=== PATIENT | male | born 1990 | race Caucasian/White ===

== ENCOUNTER → 2018-02-10 08:49 | Outpatient (CLI) | payer BC, SELFPAY ==
--- NOTE | 2018-02-10 08:58 | FL_ITS ---
FL upper GI small bowel HISTORY: Joking sensation, reflux, narrowing of the esophagus ITS.REASON: DYSPHAGIA ORDERING PHYSICIAN: Gt Woodruff MD PATIENT AGE: 27 years Comparison: None FINDINGS: The esophagus, stomach, and duodenum have an unremarkable appearance. There is a small sliding hiatal hernia with nonconstricting Schatzki's ring. No ulcer or mass evident. No mucosal abnormalities apparent. There is normal peristalsis. The duodenal C-loop is nondisplaced. The small bowel has an unremarkable appearance. No mass, obstructing lesion, or mucosal abnormality evident FLUOROSCOPY TIME : 2 minutes and 18 seconds. IMPRESSION: 1. Small sliding hiatal hernia with nonconstricting Schatzki's ring 2. Otherwise negative upper GI and small bowel follow-through
== END ==
PROVIDERS: PCP Family Medicine; Visit Provider Family Medicine
DX: R13.10 Dysphagia, unspecified (principal)
CPT/HCPCS: 74245

== ENCOUNTER → 2018-03-28 08:38 | Outpatient (POV) | payer BC, SELFPAY | PROVIDERS: Visit Provider Nurse Practitioner Acute Care | DX: Z00.00 Encounter for general adult medical examination without abnormal findings (principal) ==

== ENCOUNTER 2018-08-26 06:51 | Day surgery (SDC) | payer OTHER, SELFPAY ==
[2018-08-23 12:33] VITALS: BMI 33.2
[2018-08-26] VITALS (7 sets, daily range): BP systolic 101–120; BP diastolic 62–71; PULSE 57–73; RESP 16–18; TEMP 36.2–36.4; O2SAT 93–98
--- NOTE | 2018-08-26 07:19 | HMH.ANESCL ---
[facility] Anesthesia Checklist - Patient Identification Patient Identification: Arm Band, Verbal (Name & ) - Structural Data Admitted From: Home Planned Operative Procedure/s: EGD Consent for Planned Operative Procedure(s) Verified: Yes Verified Documents: Surgical Consent, History and Physical - NPO Status Verified Time NPO: 19:00 - Additional verifications Anesthesia Reactions: No - Airway Assessment C-Spine Mobility Assessed: Yes TMJ Mobility Assessed: Yes Dentition: Good Dentition - Neurological Assessment Level of Consciousness: Awake, Alert, Appropriate, Follows Commands Hx Seizures: No Numbness or tingling in extremities: No - Anesthesia Plan Anesthesia Risk discussed: Yes Anesthesia Plan: Verified ASA Class: II Anesthesia Type: MAC [facility] History I have reviewed the patient's past medical history: Yes Medical History: Reports:: Anxiety Denies:: Diabetes Mellitus Type 1, Diabetes Mellitus Type 2, Lung Disease *Have you ever received a pneumonia vaccine?: Yes (Unknown) *Have you received a flu vaccine this season?: Yes Comment:: obesity Other Surgeries: Yes: Hernia Repair Amputation: No Fractures: No - *Social History Smoking Status: Never smoker Alcohol Intake: current Alcohol Intake Frequency:: a few times a month *Occupational Status:: other (unknown) *Travel in the last 8 weeks: Inside the [facility] Family Hx:: No significant family history
--- NOTE | 2018-08-26 07:22 | P.PN_ITS ---
[facility] Anesthesia Checklist - Patient Identification Patient Identification: Arm Band, Verbal (Name & ) - Structural Data Admitted From: Home Planned Operative Procedure/s: EGD Consent for Planned Operative Procedure(s) Verified: Yes Verified Documents: Surgical Consent, History and Physical - NPO Status Verified Time NPO: 19:00 - Additional verifications Anesthesia Reactions: No - Airway Assessment C-Spine Mobility Assessed: Yes TMJ Mobility Assessed: Yes Dentition: Good Dentition - Neurological Assessment Level of Consciousness: Awake, Alert, Appropriate, Follows Commands Hx Seizures: No Numbness or tingling in extremities: No - Anesthesia Plan Anesthesia Risk discussed: Yes Anesthesia Plan: Verified ASA Class: II Anesthesia Type: MAC [facility] History I have reviewed the patient's past medical history: Yes Medical History: Reports:: Anxiety Denies:: Diabetes Mellitus Type 1, Diabetes Mellitus Type 2, Lung Disease *Have you ever received a pneumonia vaccine?: Yes (Unknown) *Have you received a flu vaccine this season?: Yes Comment:: obesity Other Surgeries: Yes: Hernia Repair Amputation: No Fractures: No - *Social History Smoking Status: Never smoker Alcohol Intake: current Alcohol Intake Frequency:: a few times a month *Occupational Status:: other (unknown) *Travel in the last 8 weeks: Inside the [facility] Family Hx:: No significant family history
--- NOTE | 2018-08-26 08:17 | P.PCN_ITS ---
[facility] Procedure Note Procedure Note:: Upper Endoscopy Procedure Report: Esophagogastroduodenoscopy with cold biopsies and TTS balloon dilation Endoscopost: Terry De Jesus II, MD Referring Physician: Baltazar Woodruff MD Date of Procedure: August 26, 2018 Equipment: Olympus GIF 180 standard upper endoscope Sedation: MAC sedation Indications: Mr. Acharya is a 28-year-old gentleman who has had dysphagia for the last 3 to 4 years but this has worsened recently. He does get some occasional heartburn. He does state that the dysphagia is greater with solids over liquids. He has had a couple of food impactions that last for several minutes. He did have a barium swallow that showed a ringlike stricture/Schatzki's ring and a small sliding hiatal hernia. The remainder of the upper GI series and small bowel follow-through were normal. This is his first upper endoscopy. Procedure: Prior to the procedure, a history and physical exam was performed, and patient's medications and allergies were reviewed. The risks, benefits and alternatives of the sedation and procedure were discussed with the patient. All questions were answered and informed consent was obtained. The patient was brought to the procedure room. Patient identification and proposed procedure were verified by the physician and the nurse. The patient was placed in a left lateral decubitus position and the scope was passed under direct vision. Throughout the procedure, the patient's blood pressure, pulse, and oxygen saturations were monitored continuously. The upper GI endoscopy was accomplished without difficulty. The patient tolerated the procedure well. Findings: The scope was passed directly into the upper esophagus and advanced to the third portion of the duodenum. The post bulbar duodenum and duodenal bulb were normal with normal mucosa and conniventes. The scope was withdrawn through a normal duodenal bulb and pylorus into the stomach. There was very mild linear reactive gastropathy and a cold biopsy was obtained from the antrum. The remainder of the antrum, body and fundus of the stomach were grossly normal. Upon retroflexion there was no hiatal hernia. The scope was then withdrawn into the esophagus. There was a distal ring. There was also corrugation, furrowing and linear striation strongly suggestive of eosinophilic esophagitis. Cold biopsies were taken from the distal and proximal esophagus for histology to confirm eosinophilic esophagitis. The esophagus was dilated from 18 to 20 mm (54-60 [place]) with a TTS hydrostatic balloon. There was no evidence of reflux esophagitis or Nance's. Impression: 1. Probable eosinophilic esophagitis with distal ring like stricture status post dilation to 20 mm 2. Minimal linear reactive gastropathy Plan: I will follow up the biopsies. I will place the patient on omeprazole for 3 months. I will likely add fluticasone. We will send [facility] food allergy testing today.
[2018-09-02 13:14] LABS: F001-IgE Egg White <0.10 kU/L (Class 0); F002-IgE Milk <0.10 kU/L (Class 0); F003-IgE Codfish <0.10 kU/L (Class 0); F004-IgE Wheat 0.85 kU/L (Class II); F013-IgE Peanut 0.23 kU/L (Class 0/I); F014-IgE Soybean 0.16 kU/L (Class 0/I); F024-IgE Shrimp <0.10 kU/L (Class 0); F338-IgE Scallop 0.21 kU/L (Class 0/I)
[2018-09-02 20:46] LABS: F010-IgE Sesame Seed 0.22 kU/L (Class 0/I)
== END 2018-08-26 09:13 | disposition home or self-care (01) ==
LOC: OUTP 06:52
PROVIDERS: PCP Family Medicine; Visit Provider Internal Medicine Gastroenterology
PROC: 0DJ08ZZ Inspection of Upper Intestinal Tract, Via Natural or Artificial Opening Endoscopic (ICD-10-PCS; CPT 43235; principal; 2018-08-26 08:00)
DX: K20.8 Other esophagitis (principal); K22.8 Other specified diseases of esophagus; K31.9 Disease of stomach and duodenum, unspecified
CPT/HCPCS: 43239; 43249; 36415; 86003; 86008; C1726

== ENCOUNTER → 2018-09-09 11:25 | Outpatient (CLI) | payer OTHER, SELFPAY ==
[2018-09-09 13:16] LABS: Erythrocyte Sedimentation Rate 6 mm/hr (0-15)
[2018-09-09 13:49] LABS: Alanine Aminotransferase 119 U/L (12-78); Albumin Level 4.2 gm/dL (3.4-5.0); Albumin/Globulin Ratio 1.3 (1.1-1.8); Alkaline Phosphatase 59 U/L (46-116); Anion Gap 12.4 mEq/L (5-15); Aspartate Amino Transferase 51 U/L (15-37); Bilirubin,Total 1.3 mg/dL (0.2-1.0); Blood Urea Nitrogen 14 mg/dL (7-18); Calcium 9.3 mg/dL (8.5-10.1); Carbon Dioxide 28 mmol/L (21.0-32.0); Chloride 103 mmol/L (98-107); Creatinine,Serum 0.98 mg/dL (0.70-1.30); Estimated Glomerular Filt Rate 92 ml/min (>60); GFR (African American) 112 ML/MIN (>60); Globulin 3.2 gm/dl (1.3-3.2); Glucose 93 mg/dL (74-106); Potassium 4.4 mmoL/L (3.5-5.1); Sodium 139 mmol/L (136-145); Total Protein,Serum 7.4 gm/dL (6.4-8.2); Uric Acid 7.7 mg/dL (2.6-7.2)
== END ==
LOC: LAB 11:28 → LAB.DROPOF 09-10 07:26
PROVIDERS: PCP Family Medicine; Visit Provider Physician Assistant
DX: M79.645 Pain in left finger(s) (principal); R94.5 Abnormal results of liver function studies
CPT/HCPCS: 80053; 84550; 85651

== ENCOUNTER → 2021-02-26 11:01 | Outpatient (CLI) | payer OTHER, SELFPAY | PROVIDERS: PCP Family Medicine; Visit Provider Family Medicine | DX: G47.9 Sleep disorder, unspecified (principal) | CPT/HCPCS: 95806 ==

== ENCOUNTER → 2021-04-30 21:18 | Outpatient (CLI) | payer OTHER, SELFPAY | PROVIDERS: PCP Family Medicine; Visit Provider Nurse Practitioner Family | DX: G47.33 Obstructive sleep apnea (adult) (pediatric) (principal); R06.83 Snoring | CPT/HCPCS: 95810 ==

== ENCOUNTER → 2021-05-22 11:26 | Outpatient (CLI) | payer OTHER, SELFPAY | PROVIDERS: PCP Family Medicine; Visit Provider Nurse Practitioner | DX: Z20.822 Contact with and (suspected) exposure to COVID-19 (principal) | CPT/HCPCS: C9803; U0003; U0005 ==

== ENCOUNTER 2021-08-15 09:09 | Emergency (ER) | payer OTHER, SELFPAY ==
[2021-08-15 10:10] VITALS: BP 129/81; PULSE 85; RESP 22; TEMP 37.1; O2SAT 96; BMI 34.9
--- NOTE | 2021-08-15 10:45 | HMH.EDUTC ---
[facility] [place] Disposition Clinical Impression: Abdominal pain Qualifiers: Abdominal location: unspecified location Qualified Code(s): R10.9 - Unspecified abdominal pain Disposition: Still a Patient Condition on Discharge: Fair Referrals: Gt Woodruff MD [Primary Care Provider] - Medical Decision Making - Greg Inquiry Pt receiving controlled substance: No Greg was queried for this patient: No Vital Signs: 08/15/21 10:10 Temperature 98.8 F Temperature Source Oral Pulse Rate [Left Brachial] 85 Respiratory Rate 22 Blood Pressure [Left Arm] 129/81 Blood Pressure Mean [Left Arm] 97 Blood Pressure Source [Left Arm] Automatic Cuff Blood Pressure Position [Left Arm] Sitting 02 Sat by Pulse Oximetry 96 Oxygen Delivery Method Room Air Medical Decision Narrative: Patient reports pain in abdomen around naval area and right lower quad that started on and off yesterday and got more consistent last night with fever and still having moderate pain in right lower quad this morning reports large BM prior to arrival and denies N/V/D Due to symptoms and complaints recommended transfer to the ED for further work up and evaluation and patient agreed Called ED spoke with Adriana THOMAS and patient was moved to room [address] [place] [address] HPI - General Stated complaint: abd pain, fever Time Seen by Provider: 08/15/21 10:35 Mode of Arrival: Ambulatory Source of Information: Patient Limitations: No Limitations Description of Symptoms (Recalled from Triage Doc. by RN): PATIENT C/O ABDOMINAL PAIN, SWEATS AND FEVER SINCE YESTERDAY. HE REPORTS THE PAIN IS MID-ABDOMINAL, RLQ, AND RIGHT LOWER BACK. DENIES NAUSEA, VOMITING OR DIARRHEA HEENT Symptoms (Recalled from RN notes): No Resp Symptoms (Recalled from RN notes): No Skin Symptoms (Recalled from RN notes): No MS Symptoms (Recalled from RN notes): No Functional Status (Recalled from RN notes): WNL - History of Present Illness Provider Complaint: Patient states that he has been having pain in his right lower abdomen on and off yesterday and felt like at times it was going into his back and he had a fever last night States that also last night the pain got more constant from around his naval area to right lower quad and hurts when he moves certain ways States that this morning he is still having constant pain in his lower belly so he came in States that he had Large BM just prior to arrival Denies burning with urination denies vomiting and diarrhea - Related Data Home Medications Medication Instructions Recorded Confirmed sertraline 50 mg tablet 50 mg PO DAILY tab 03/26/21 08/15/21 Allergies Allergy/AdvReac Type Severity Reaction Status Date / Time No Known Drug Allergies Allergy Unknown Verified 05/14/21 13:04 [NO KNOWN DRUG ALLERGIES] - Worker's Comp Is this a Worker's Comp case?: No [facility] History - Hepatitis A Screen Attestation statement:: This patient has been screened for Hepatitis A risk factors. I have reviewed the patient's past medical history: Yes Medical History: Reports:: Anxiety, Depression Denies:: Diabetes Mellitus Type 1, Diabetes Mellitus Type 2, Internal Pacemaker, Lung Disease, Seizures Comment: obesity Laterality Cases: Bilateral: Myringotomy (Ear Tubes) Other Surgeries: Yes: Hernia Repair, Other. No: Pacemaker Amputation: No Fractures: No Comment: Lasik - Social History Smoking Status: Never smoker Alcohol Intake: never Alcohol Intake Frequency:: a few times a month Occupational Status: other - Psychiatric History Pschychiatric History:: Reports:: Anxiety, Depression Family Hx:: Hypertension ROS Obtained: Yes All systems reviewed & no additional complaints, Yes Systems reviewed as appropriate & no additional complaints - Constitutional Constitutional: Reports system reviewed and no additional complaints, except as docu, Reports fever(s) - Cardiovascular Cardiovascular: Reports system reviewed and no additional complaints, except as docu - Resp
--- NOTE | 2021-08-15 10:45 | PC.NURSE ---
PATIENT SENT TO ER PER Mary QUINTANA APRN FOR FURTHER EVALUATION. REPORT GIVEN TO David MICHELLE RN BY Mary QUINTANA APRN
[2021-08-15 10:51] VITALS: BP 130/72; PULSE 87; RESP 16; TEMP 36.8; O2SAT 99; BMI 35.2
[2021-08-15 11:01] LABS: Microscopic, Urine URINE MICROSCOPIC (MICROSCOPIC)
[2021-08-15 11:05] LABS: Appearance,Urine CLEAR (Clear); Blood, Urine Negative (Negative); Color,Urine YELLOW (Yellow); Glucose,Urine (UA) Negative (Negative); Ketones,Urine Negative (Negative); Leukocyte Esterase,Urine Negative (Negative); Nitrate,Urine Negative (Negative); PH,Urine 5.5 (5.0-8.5); Protein,Urine Negative (Negative); Specific Gravity, Urine 1.025 (1.005-1.030)
[2021-08-15 11:06] LABS: Chloride 104 mmol/L (98-107)
[2021-08-15 11:07] LABS: Potassium 4.1 mmoL/L (3.5-5.1); Sodium 139 mmol/L (136-145)
[2021-08-15 11:09] LABS: Alanine Aminotransferase 97 U/L (12-78); Albumin Level 4.3 g/dl (3.5-5.0); Albumin/Globulin Ratio 1.5 (1.1-1.8); Alkaline Phosphatase 54 U/L (38-126); Anion Gap 12.1 mEq/L (5-15); Aspartate Amino Transferase 58 U/L (17-59); Blood Urea Nitrogen 15 mg/dl (9-20); Calcium 9.2 mg/dl (8.4-10.2); Carbon Dioxide 27 mmol/L (22.0-30.0); Creatinine Clearance Estimated 214 mL/min (50-200); Estimated Glomerular Filt Rate 114 ml/min (>60); GFR (African American) 138 ML/MIN (>60); Globulin 2.9 g/dL (1.3-3.2); Glucose 110 mg/dl (74-100); Total Protein,Serum 7.2 g/dl (6.3-8.2)
--- NOTE | 2021-08-15 11:09 | HMH.EDGENADL ---
ED Disposition Clinical Impression: Right lower quadrant abdominal pain Disposition: Home, Self-Care Condition on Discharge: Good Instructions: DI for Acute Abdominal Pain Additional Instructions: Ibuprofen for pain. Return to the emergency department in 24 hours if pain has not improved or if symptoms are worsening or if new symptoms such as repetitive vomiting. Referrals: Gt Woodruff MD [Primary Care Provider] - - Critical Care Critical Care Time: No Attestation: On 08/15/21, the high probability of a clinically significant, sudden or life threatening deterioration of the following system(s) required my full and direct attention, intervention and personal management. The time I documented below is in addition to time spent performing reported procedures but includes the following listed in this critical care notation. Medical Decision Making - Greg Inquiry Pt receiving controlled substance: No Vital Signs: 08/15/21 10:10 08/15/21 10:51 08/15/21 12:15 Temperature 98.8 F 98.2 F Temperature Source Oral Oral Pulse Rate 69 Pulse Rate [Left Brachial] 85 87 Respiratory Rate 22 16 16 Blood Pressure 117/71 Blood Pressure [Left Arm] 129/81 130/72 Blood Pressure Mean 82 Blood Pressure Mean [Left Arm] 97 91 Blood Pressure Source [Left Arm] Automatic Cuff Automatic Cuff Blood Pressure Position [Left Arm] Sitting Sitting 02 Sat by Pulse Oximetry 96 99 99 Oxygen Delivery Method Room Air Room Air Room Air 08/15/21 12:30 Temperature Temperature Source Pulse Rate 76 Pulse Rate [Left Brachial] Respiratory Rate 16 Blood Pressure 113/63 Blood Pressure [Left Arm] Blood Pressure Mean 84 Blood Pressure Mean [Left Arm] Blood Pressure Source [Left Arm] Blood Pressure Position [Left Arm] 02 Sat by Pulse Oximetry 100 Oxygen Delivery Method Room Air - Lab Data Lab Results 08/15/21 10:55: Urine Color Yellow, Urine Appearance Clear, Urine pH 5.5, Ur Specific [place] 1.025, Urine Protein Negative, Urine Glucose (UA) Negative, Urine Ketones Negative, Urine Blood Negative, Urine Nitrate Negative, Urine Bilirubin 1+ A, Urine Urobilinogen 1.0, Ur Leukocyte Esterase Negative, Urine RBC Occasional, Urine WBC 3-5, Ur Squamous Epith Cells Occasional, Urine Bacteria 2+, Urine Mucus 3+ 08/15/21 10:55: WBC 7.0, RBC 5.77, Hgb 17.2, Hct 49.0, MCV 85.0, MCH 29.8, MCHC 35.0, RDW 12.2, Plt Count 305, MPV 7.7, Neut % (Auto) 76.6, Lymph % (Auto) 13.7, Shannon % (Auto) 7.6, Eos % (Auto) 1.2, Baso % (Auto) 1.0, Neut # (Auto) 5.3, Lymph # (Auto) 1.0, Shannon # (Auto) 0.5, Eos # (Auto) 0.1, Baso # (Auto) 0.1 08/15/21 10:55: Sodium 139, Potassium 4.1, Chloride 104, Carbon Dioxide 27, Anion Gap 12.1, BUN 15, Creatinine 0.80, Estimated Creat Clear 214, Estimated GFR 114, Est GFR ( Amer) 138, Glucose 110 H, Calcium 9.2, Total Bilirubin 1.0, AST 58, ALT 97 H, Alkaline Phosphatase 54, Total Protein 7.2, Albumin 4.3, Globulin 2.9, Albumin/Globulin Ratio 1.5 08/15/21 11:00: Lipase 57 Result diagrams: 08/15/21 10:55 08/15/21 10:55 Orders (Tests/Meds): ED MEDICATIONS Generic Name Dose Route Start Last Admin Trade Name Freq PRN Reason Stop Dose Admin Sodium Chloride 10 ml 08/15/21 10:58 Sodium Chloride 0.9% 10ml Flush Syringe IV 09/14/21 10:57 NEEDED PRN Maintain IV Site Discontinued Medications Generic Name Dose Route Start Last Admin Trade Name Freq PRN Reason Stop Dose Admin Sodium Chloride 1,000 mls @ 999 mls/hr 08/15/21 11:00 08/15/21 11:03 Sod Chlor 0.9% 1000ml Bag IV 08/15/21 12:00 999 mls/hr .Q1H1M RADAMES Administration Ketorolac Tromethamine 30 mg 08/15/21 11:01 08/15/21 11:04 Ketorolac 30mg/Ml Vial IV 08/15/21 11:02 30 mg ONCE ONE Administration Ondansetron HCl 4 mg 08/15/21 11:00 08/15/21 11:04 Ondansetron 4mg/2ml Vial IV 08/15/21 11:01 4 mg ONCE ONE Administration ORDERS Category Date Time Status Urine Culture Stat Micro 08/15/21 10:55 R
[2021-08-15 11:10] LABS: Basophils # 0.1 K/mm3 (0-0.2); Eosinophils # 0.1 K/mm3 (0.0-0.4); Eosinophils % 1.2 % (0.1-12.0); Hemoglobin 17.2 g/dL (14.1-18.0); Lymphocytes % 13.7 % (10-50); Mean Corpuscular Hemoglobin 29.8 pg (27.0-31.2); Mean Platelet Volume 7.7 fl (7.4-10.4); Monocytes # 0.5 K/mm3 (0.1-1.0); Monocytes % 7.6 % (1.7-9.3); Neutrophils # 5.3 K/mm3 (1.8-7.8); Neutrophils % 76.6 % (37.0-80.0); Platelet Count 305 K/mm3 (142-424); Red Blood Count 5.77 M/mm3 (4.60-6.20); Red Cell Distribution Width 12.2 % (11.5-17.5)
--- NOTE | 2021-08-15 11:20 | CT_ITS ---
FINAL REPORT CLINICAL HISTORY: rlq pain FINDINGS: Axial CT images of the abdomen and pelvis were obtained without intravenous contrast. Coronal reformatted images were also obtained.This study was performed with techniques to keep radiation doses as low as reasonably achievable (ALARA). Individualized dose reduction techniques using automated exposure control or adjustment of mA and/or kV according to the patient's size were employed. Abdomen: The lung bases are clear. There is no evidence of renal stone or hydronephrosis. There is fatty infiltration of the liver. The gallbladder is present. There is mild splenomegaly at 13 cm. The pancreas has a an unremarkable, unenhanced appearance. No mass or adenopathy is seen. No inflammatory process is identified. Pelvis: Images of the pelvis reveal no evidence of ureteral dilation or ureteral stone.No mass or abnormal fluid collection is identified. There is a right paracentral disc protrusion at L4-L5 with possible right L5 nerve root impingement. There are postoperative changes in the bilateral inguinal region. There is stranding in the right inguinal region favoring postoperative change. IMPRESSION: No renal or ureteral stone, or hydronephrosis. Fatty liver with mild splenomegaly. Right paracentral disc protrusion at L4-L5 with possible right L5 nerve root impingement. Postoperative change in the bilateral inguinal regions. Reviewed, Interpreted and Dictated by José Barrera III, MD Transcribed by Adilson Ragland Authenticated by José Barrera III, MD on 08/15/2021 12:24:29 PM [facility]
--- NOTE | 2021-08-15 11:21 | PC.NURSE ---
notified rad of Ct order, spoke with mechelle
[2021-08-15 11:24] LABS: Bacteria,Urine 2+ /lpf; RBC,Urine Occasional #/hpf (0-3); Squamous Epithelial Cell,Urine Occasional #/hpf (0-5)
[2021-08-15 11:25] LABS: Mucus,Urine 3+ /lpf
[2021-08-15 11:29] LABS: Bilirubin,Urine 1+ (Negative)
[2021-08-15 11:31] LABS: Lipase 57 U/L (23-300)
[2021-08-15 12:15] VITALS: BP 117/71; PULSE 69; RESP 16; O2SAT 99
[2021-08-15 12:30] VITALS: BP 113/63; PULSE 76; RESP 16; O2SAT 100
--- NOTE | 2021-08-15 12:49 | PC.NURSE ---
SAVANNAH WATKINS requests to speak with dr. cooper, office staff states dr. cooper may still be in surgery, states he is not in the office. 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 cooper
--- NOTE | 2021-08-15 12:53 | PC.NURSE ---
spoke with og gonzalez who was returning call for dr. cooper, states dr. cooper is scrubbed in at this time. ER states he was wanting to consult on pt, but states since dr. cooper is unavailable no need to relay a message.
[2021-08-15 13:24] VITALS: BP 113/63; PULSE 76; RESP 16; TEMP 36.8; O2SAT 100
== END 2021-08-15 13:24 | disposition home or self-care (01) ==
LOC: UTC 09:18 → ER 10:49
PROVIDERS: Emergency Provider Emergency Medicine; PCP Family Medicine
DX: R10.31 Right lower quadrant pain (principal); F41.8 Other specified anxiety disorders
CPT/HCPCS: 74176; 80053; 81001; 83690; 85025; 87086; 96360; 96375; 99284; J2405

== ENCOUNTER 2021-08-16 12:54 | Emergency (ER) | payer OTHER, SELFPAY ==
[2021-08-16 12:55] VITALS: BP 119/77; PULSE 75; RESP 16; TEMP 37.1; O2SAT 98; BMI 35.2
--- NOTE | 2021-08-16 13:01 | HMH.EDABDPAI ---
ED Disposition Clinical Impression: Abdominal pain Qualifiers: Abdominal location: generalized Qualified Code(s): R10.84 - Generalized abdominal pain Diarrhea Qualifiers: Diarrhea type: unspecified type Qualified Code(s): R19.7 - Diarrhea, unspecified Disposition: Home, Self-Care Condition on Discharge: Good Instructions: Acute Abdominal Pain, Diarrhea Additional Instructions: follow up PCP and ED as needed Prescriptions: Dicyclomine HCl [Bentyl 10mg capsule] 10 mg PO TID PRN #15 cap PRN Reason: Cramping Transmission Status: Pending to [facility] Ondansetron [Zofran 4mg ODT] 4 mg PO TIDP PRN #15 tab PRN Reason: Nausea And Vomiting Transmission Status: Pending to [facility] Referrals: Gt Woodruff MD [Primary Care Provider] - - Critical Care Critical Care Time: No Attestation: On , the high probability of a clinically significant, sudden or life threatening deterioration of the following system(s) required my full and direct attention, intervention and personal management. The time I documented below is in addition to time spent performing reported procedures but includes the following listed in this critical care notation. Medical Decision Making - Medical Records Medical records reviewed: Yes: I reviewed the patient's medical records. - Greg Inquiry Pt receiving controlled substance: No Vital Signs: 08/16/21 12:55 08/16/21 13:30 08/16/21 14:00 Temperature 98.8 F Temperature Source Oral Pulse Rate 76 68 Pulse Rate [Radial] 75 Respiratory Rate 16 16 16 Blood Pressure 129/72 123/72 Blood Pressure [Right Arm] 119/77 Blood Pressure Mean 87 86 Blood Pressure Mean [Right Arm] 91 Blood Pressure Position [Right Arm] Sitting 02 Sat by Pulse Oximetry 98 97 99 Oxygen Delivery Method Room Air - Lab Data Lab Results 08/16/21 13:26: WBC 6.2, RBC 5.38, Hgb 16.3, Hct 47.0, MCV 87.3, MCH 30.3, MCHC 34.7, RDW 12.8, Plt Count 324, MPV 8.3, Neut % (Auto) 55.0, Lymph % (Auto) 29.9, [place] % (Auto) 9.0, Eos % (Auto) 6.0, Baso % (Auto) 6.1 H, Neut # (Auto) 3.4, Lymph # (Auto) 1.9, [place] # (Auto) 0.6, Eos # (Auto) 0.4, Baso # (Auto) 0.4 H 08/16/21 13:26: Sodium 138, Potassium 4.0, Chloride 105, Carbon Dioxide 27, Anion Gap 10.0, BUN 9 D, Creatinine 0.80, Estimated Creat Clear 214, Estimated GFR 114, Est GFR ( Amer) 138, Glucose 100, Calcium 9.2, Total Bilirubin 0.5, AST 65 H, ALT 94 H, Alkaline Phosphatase 50, Total Protein 6.8, Albumin 4.1, Globulin 2.7, Albumin/Globulin Ratio 1.5 08/16/21 13:26: Lipase 58 Result diagrams: 08/16/21 13:26 08/16/21 13:26 Orders (Tests/Meds): ED MEDICATIONS Discontinued Medications Generic Name Dose Route Start Last Admin Trade Name Freq PRN Reason Stop Dose Admin Dicyclomine HCl 20 mg 08/16/21 13:00 08/16/21 13:49 Dicyclomine 10mg Capsule PO 08/16/21 13:01 20 mg ONCE ONE Administration Metoclopramide HCl 10 mg 08/16/21 13:00 08/16/21 13:55 Metoclopramide Hcl 10mg/2ml Vial IVP 08/16/21 13:01 Not Given ONCE ONE Metoclopramide HCl 10 mg 08/16/21 13:55 08/16/21 13:56 Metoclopramide 10mg Tablet PO 08/16/21 13:56 10 mg ONCE ONE Administration Medical Decision Narrative: reeval 210pm appears well, discussed etiologuy ;likely gi and not appy given ct and labs and symptoms, ok with plan to rx and f/u prn Abdominal Pain HPI - General Stated Complaint: abd pains, diarrhea Time Seen by Provider: 08/16/21 13:01 - History of Present Illness HPI narrative: diffuse abd pain few days, assoc with diarrhea watery and nausea, worse today seen here yest for same ct abd w/o nml Onset (ago): day(s) Consistency: constant, intermittent Severity: moderate Quality: cramping Radiation: none Relieving factors: nothing Exacerbating factors: eating Associated symptoms: nausea - Related Data Home Medications Medication Instructions Recorded Confirmed sertraline 50 mg table
--- NOTE | 2021-08-16 13:28 | PC.NURSE ---
labs obtained and sent to the lab. patient tolerated sticks well. successful in 2 sticks.
[2021-08-16 13:30] VITALS: BP 129/72; PULSE 76; RESP 16; O2SAT 97
[2021-08-16 13:38] LABS: Chloride 105 mmol/L (98-107); Sodium 138 mmol/L (136-145)
[2021-08-16 13:40] LABS: Blood Urea Nitrogen 9 mg/dl (9-20); Creatinine Clearance Estimated 214 mL/min (50-200); Estimated Glomerular Filt Rate 114 ml/min (>60); GFR (African American) 138 ML/MIN (>60)
[2021-08-16 13:41] LABS: Alanine Aminotransferase 94 U/L (12-78); Albumin Level 4.1 g/dl (3.5-5.0); Albumin/Globulin Ratio 1.5 (1.1-1.8); Alkaline Phosphatase 50 U/L (38-126); Aspartate Amino Transferase 65 U/L (17-59); Bilirubin,Total 0.5 mg/dl (0.2-1.3); Carbon Dioxide 27 mmol/L (22.0-30.0); Globulin 2.7 g/dL (1.3-3.2); Lipase 58 U/L (23-300); Total Protein,Serum 6.8 g/dl (6.3-8.2)
[2021-08-16 13:42] LABS: Calcium 9.2 mg/dl (8.4-10.2); Glucose 100 mg/dl (74-100)
[2021-08-16 13:52] LABS: Basophils # 0.4 K/mm3 (0-0.2); Basophils % 6.1 % (0.1-2.0); Eosinophils # 0.4 K/mm3 (0.0-0.4); Hemoglobin 16.3 g/dL (14.1-18.0); Lymphocytes # 1.9 K/mm3 (0.7-4.5); Lymphocytes % 29.9 % (10-50); Mean Corpuscular HGB Conc 34.7 g/dL (31.8-35.4); Mean Corpuscular Hemoglobin 30.3 pg (27.0-31.2); Mean Corpuscular Volume 87.3 fl (80-94); Mean Platelet Volume 8.3 fl (7.4-10.4); Monocytes # 0.6 K/mm3 (0.1-1.0); Neutrophils # 3.4 K/mm3 (1.8-7.8); Platelet Count 324 K/mm3 (142-424); Red Blood Count 5.38 M/mm3 (4.60-6.20); Red Cell Distribution Width 12.8 % (11.5-17.5); White Blood Count 6.2 K/mm3 (4.8-10.8)
[2021-08-16 14:00] VITALS: BP 123/72; PULSE 68; RESP 16; O2SAT 99
[2021-08-16 14:28] VITALS: BP 124/70; PULSE 64; RESP 18; TEMP 37.1; O2SAT 99
== END 2021-08-16 14:29 | disposition home or self-care (01) ==
PROVIDERS: Emergency Provider Emergency Medicine; PCP Family Medicine
DX: R10.84 Generalized abdominal pain (principal); R11.0 Nausea; R19.7 Diarrhea, unspecified; F32.A Depression, unspecified; F41.9 Anxiety disorder, unspecified; Z82.49 Family history of ischemic heart disease and other diseases of the circulatory system
CPT/HCPCS: 80053; 83690; 85025; 96374; 96375; 99284

== ENCOUNTER → 2021-08-18 14:12 | Outpatient (CLI) | payer OTHER, SELFPAY ==
[2021-08-18 14:16] LABS: Adenovirus F 40/41, stool Not Detected (NotDetected); Campylobacter Not Detected (NotDetected); Clostridium Difficile A/B, PCR Not Detected (NotDetected); Cryptosporidium Not Detected (NotDetected); Cyclospora Cayetanesis Not Detected (NotDetected); Entamoeba histolytica Not Detected (NotDetected); Enteroaggregative E coli Not Detected (NotDetected); Enteropathogenic E coli Not Detected (NotDetected); Enterotoxigenic E coli Not Detected (NotDetected); Giardia lamblia Not Detected (NotDetected); Norovirus Not Detected (NotDetected); Plesimonas Shigalloides, PCR Not Detected (NotDetected); Rotavirus A Not Detected (NotDetected); Salmonella, PCR Not Detected (NotDetected); Sapovirus Not Detected (NotDetected); Shiga-like toxin E coli Not Detected (NotDetected); Shigella Enterovasive E coli Not Detected (NotDetected); Vibrio Cholerae Not Detected (NotDetected); Vibrio, PCR Not Detected (NotDetected); Yersinia Entercolitica, PCR Not Detected (NotDetected)
[2021-08-21 15:57] LABS: Astrovirus Detected (NotDetected)
== END ==
PROVIDERS: Visit Provider Nurse Practitioner Family
DX: R19.7 Diarrhea, unspecified (principal); A08.32 Astrovirus enteritis
CPT/HCPCS: 87507

== ENCOUNTER → 2022-02-16 16:05 | Outpatient (CLI) | payer OTHER, SELFPAY ==
[2022-02-16 16:33] LABS: Adenovirus F 40/41, stool Not Detected (NotDetected); Astrovirus Not Detected (NotDetected); Campylobacter Not Detected (NotDetected); Clostridium Difficile A/B, PCR Not Detected (NotDetected); Cryptosporidium Not Detected (NotDetected); Cyclospora Cayetanesis Not Detected (NotDetected); Entamoeba histolytica Not Detected (NotDetected); Enteroaggregative E coli Not Detected (NotDetected); Enteropathogenic E coli Not Detected (NotDetected); Enterotoxigenic E coli Not Detected (NotDetected); Giardia lamblia Not Detected (NotDetected); Norovirus Not Detected (NotDetected); Plesimonas Shigalloides, PCR Not Detected (NotDetected); Rotavirus A Not Detected (NotDetected); Salmonella, PCR Not Detected (NotDetected); Shiga-like toxin E coli Not Detected (NotDetected); Shigella Enterovasive E coli Not Detected (NotDetected); Vibrio Cholerae Not Detected (NotDetected); Vibrio, PCR Not Detected (NotDetected); Yersinia Entercolitica, PCR Not Detected (NotDetected)
[2022-02-17 00:27] LABS: Sapovirus Detected (NotDetected)
== END ==
PROVIDERS: Family Medicine; PCP Family Medicine; Visit Provider Family Medicine
DX: K52.9 Noninfective gastroenteritis and colitis, unspecified (principal); A08.4 Viral intestinal infection, unspecified
CPT/HCPCS: 87507

== ENCOUNTER 2022-04-23 16:26 | Emergency (ER) | payer OTHER, SELFPAY ==
[2022-04-23 17:05] VITALS: BP 116/67; PULSE 74; RESP 18; TEMP 36.8; O2SAT 98; BMI 32.4
--- NOTE | 2022-04-23 17:32 | EXP.UTC ---
Discharge Plan Disposition Patient Disposition: Home, Self-Care Condition: Good Prescriptions Prescriptions: New polymyxin B sulf-trimethoprim [Polytrim] 10,000 unit- 1 mg/mL drops 2 drp ophthalmic (eye) Q6H 7 Days Qty: 10 0RF Rx Instructions: left eye while awake; do not exceed 6 doses in 24 hours No Action sertraline 50 mg tablet 50 mg PO DAILY Referrals Follow up/Referrals: Gt Woodruff MD [Primary Care Provider] - See instructions Activity Restrictions/Add. Instructions Additional Instructions/Restrictions: Wash hands well before and after applying drops Use drops as prescribed Follow up with your Eye Doctor if no improvement or any worsening of symptoms Return if needed Clinical Impressions Clinical Impression: Conjunctivitis Instructions Patient Instructions: Conjunctivitis, DI for Conjunctivitis Discharge ED Provider: Ashely Stanley [facility] General Stated complaint: redness LT eye Mode of Arrival: Ambulatory Source of Information: Patient Limitations: No Limitations Time Seen by Provider: 04/23/22 17:32 Description of Symptoms (Recalled from Triage Doc. by RN): PATIENT C/O REDNESS TO LEFT EYE X 2 DAYS HEENT Symptoms (Recalled from RN notes): Yes Resp Symptoms (Recalled from RN notes): No Skin Symptoms (Recalled from RN notes): No MS Symptoms (Recalled from RN notes): No Functional Status (Recalled from RN notes): WNL History of Present Illness Provider Complaint: Patient states he thinks he may have [place] eye States that he has been having some drainage, redness, and sticky matting to left eye for the last couple of days State that today it wasnt any better so he came in to get it checked Related Data Home Medications Medication Instructions Recorded Confirmed sertraline 50 mg tablet 50 mg PO DAILY Anxiety 03/26/21 04/23/22 Previous Rx's Medication Instructions Recorded polymyxin B sulfate 10,000 2 drp ophthalmic (eye) Q6H 7 days 04/23/22 unit-trimethoprim 1 mg/mL eye #10 mL drops (Polytrim) Allergies Allergy/AdvReac Type Severity Reaction Status Date / Time No Known Drug Allergies Allergy Unknown Verified 01/28/22 08:18 [NO KNOWN DRUG ALLERGIES] Worker's Comp Is this a Worker's Comp case?: No [facility] Disclaimer: The information contained in this section may have been updated after the patient was seen, as this information can be updated by other users. Medical History (Updated 04/23/22 @ 17:39 by Ashely Stanley APRN) Anxiety Family History (Updated 01/28/22 @ 08:19 by Greer Mason) Other Cancer Coronary artery disease Diabetes Social History (Updated 04/23/22 @ 17:21 by Marivel Kearns RN) Smoking Status: Never smoker alcohol intake: never current occupational status: employed Travel in the last 8 weeks: None caffeine: No ROS Obtained: Yes All systems reviewed & no additional complaints except as documented and Yes Systems reviewed as appropriate & no additional complaints except as documented Constitutional Constitutional: Reports system reviewed and no additional complaints, except as documented and Reports as per HPI Eyes Eyes: Reports system reviewed and no additional complaints, except as documented, Reports as per HPI, Reports eye discharge and Reports irritation ENT Ears, Nose, Mouth, and Throat: Reports system reviewed and no additional complaints, except as documented and Reports as per HPI Cardiovascular Cardiovascular: Reports system reviewed and no additional complaints, except as documented and Reports as per HPI Respiratory Respiratory: Reports system reviewed and no additional complaints, except as documented and Reports as per HPI Gastrointestinal Gastrointestingal: Reports system reviewed and no additional complaints, except as documented and as per HPI Physical Exam General General appearance: alert and in no apparent distress Eye Eye exam: Present conjunctival redness (left eye) and
[2022-04-23 17:40] VITALS: BP 116/67; PULSE 74; RESP 18; TEMP 36.8; O2SAT 98
== END 2022-04-23 17:45 | disposition home or self-care (01) ==
PROVIDERS: Emergency Provider Nurse Practitioner; PCP Family Medicine
DX: H10.9 Unspecified conjunctivitis (principal)
CPT/HCPCS: 99212; 99213; G0463

== ENCOUNTER 2023-03-29 10:34 | Emergency (ER) | payer OTHER, SELFPAY ==
[2023-03-29 12:05] VITALS: BP 126/73; PULSE 99; RESP 18; TEMP 37.4; O2SAT 99; BMI 36.8
--- NOTE | 2023-03-29 12:25 | EXP.UTC ---
Discharge Plan Disposition Patient Disposition: Home, Self-Care Condition: Good Prescriptions Prescriptions: No Action sertraline 50 mg tablet 50 mg PO DAILY Referrals Follow up/Referrals: Gt Woodruff MD [Primary Care Provider] - See instructions Activity Restrictions/Add. Instructions Additional Instructions/Restrictions: *Monitor Temp, Over the counter Motrin or Tylenol as directed/as needed Tylenol every 4 hours and Motrin every 6 hours (as long as your family doctor has told you that you can take it) for fever or pain. and straight to ER if unable to lower temp less than 101.0 after medication given *Warm salt water gargles may help to soothe the throat *Throat Lozenges? *Warm fluids like tea with honey may help to soothe the throat? *Sleep elevated *Humidifier/Vaporizer Your throat swab was sent for culture. Those results are typically sent to your primary care. Be sure to follow up in 2-3 days with your family doctor/primary care physician if no improvement so they can review those result and treat if necessary. If you don?t have a primary care doctor, I recommend you get one but in the mean time, you will have to return to a walk in clinic Follow up IMMEDIATELY for new or worsening symptoms or no Noticeable improvement over the next 48-72 hours. 911 for difficulty breathing or swallowing Clinical Impressions Clinical Impression: Viral syndrome Stand Alone Forms Stand Alone Forms: Work/School Release Instructions Patient Instructions: DI for Viral Syndrome, DI for Fever (Symptom) -- Adult Discharge ED Provider: Ashely Stanley [facility] General Stated complaint: headache, cough, stuffy nose Mode of Arrival: Ambulatory Source of Information: Patient Limitations: No Limitations Time Seen by Provider: 03/29/23 12:25 Description of Symptoms (Recalled from Triage Doc. by RN): PATIENT C/O HEADACHE, RUNNY NOSE, COUGH, FEVER, BODY ACHES AND WEAKNESS X 2 DAYS HEENT Symptoms (Recalled from RN notes): Yes Resp Symptoms (Recalled from RN notes): Yes Skin Symptoms (Recalled from RN notes): No MS Symptoms (Recalled from RN notes): No Functional Status (Recalled from RN notes): WNL History of Present Illness Provider Complaint: Patient states that he hasnt felt well in a couple of days States that he has been having flu like symptoms and feels like he may have the flu States that he has been having scratchy throat, cough, low grade fever, body aches, and headache Statesa that today he wasnt feeling any better so he came in to get checked Related Data Home Medications Medication Instructions Recorded Confirmed sertraline 50 mg tablet 50 mg PO DAILY Anxiety 03/26/21 07/29/22 Allergies Allergy/AdvReac Type Severity Reaction Status Date / Time No Known Drug Allergies Allergy Unknown Verified 07/29/22 08:15 [NO KNOWN DRUG ALLERGIES] Worker's Comp Is this a Worker's Comp case?: No [facility] Disclaimer: The information contained in this section may have been updated after the patient was seen, as this information can be updated by other users. Medical History (Updated 03/29/23 @ 12:35 by Ashely Stanley APRN) Anxiety Family History (Updated 01/28/22 @ 08:19 by Greer Mason) Other Cancer Coronary artery disease Diabetes Social History (Updated 04/23/22 @ 17:21 by Marivel Kearns RN) Smoking Status: Never smoker alcohol intake: never current occupational status: employed Travel in the last 8 weeks: None caffeine: No ROS Obtained: Yes All systems reviewed & no additional complaints except as documented and Yes Systems reviewed as appropriate & no additional complaints except as documented Constitutional Constitutional: Reports system reviewed and no additional complaints, except as documented, Reports as per HPI, Reports body ache, Reports chills, Reports fever(s) and Reports headache(s) ENT Ears, Nose, Mouth, and Throat: Reports system reviewed and no additional complaints, except as documented, Reports as per HPI, Reports headache(s), Reports nasal congestion, Reports nasal discharge and Reports sore throat (scratchy throat) Cardiovascular Cardiovascular: Reports system reviewed and no additional complaints, except as documented and Reports as per HPI Respiratory Respiratory: Reports system reviewed and no additional complaints, except as documented, Reports as per HPI and Reports cough Gastrointestinal Gastrointestingal: Reports system reviewed and no additional complaints, except as documented and as per HPI Neurologic Neurologic: Reports headache(s) Physical Exam General General appearance: alert and in no apparent distress ENT ENT exam: Present mucous membranes moist Expanded ENT Exam Nose exam: Absent sinus tenderness Throat exam: Present tonsillar erythema Respiratory Respiratory exam: Present normal lung sounds bilaterally; Absent respiratory distress or wheezes Cardiovascular Cardiovascular exam: Present regular rate, normal rhythm and normal heart sounds Neurological Exam Neurological exam: Present alert, oriented X3 and normal gait Medical Decision Making Greg Inquiry Pt receiving controlled substance: No Greg was queried for this patient: No Vital Signs: 03/29/23 12:05 Temperature 99.4 F Temperature Source Oral Pulse Rate [Left Brachial] 99 H Respiratory Rate 18 Blood Pressure [Left Arm] 126/73 Blood Pressure Mean [Left Arm] 90 Blood Pressure Source [Left Arm] Automatic Cuff Blood Pressure Position [Left Arm] Sitting 02 Sat by Pulse Oximetry 99 Oxygen Delivery Method Room Air Lab Data Lab results reviewed: Yes I reviewed the patient's lab results.
[2023-03-29 12:40] VITALS: BP 126/73; PULSE 99; RESP 18; TEMP 37.4; O2SAT 99
[2023-03-29 12:46] LABS: UTC Influenza A Antigen Negative (Negative); UTC Influenza B Antigen Negative (Negative)
[2023-03-29 12:46] LABS: UTC Strep Screen (Rapid) Negative (Negative)
[2023-03-29 13:21] LABS: Adenovirus,PCR Not Detected (NotDetected); Coronavirus 229E Not Detected (NotDetected); Coronavirus NL63 Not Detected (NotDetected); Coronavirus OC43 Not Detected (NotDetected); Coronovirus HKU1,PCR Not Detected (NotDetected); Human Metapneumovirus Not Detected (NotDetected)
[2023-03-29 13:22] LABS: Influenza A, PCR Not Detected (NotDetected); Influenza AH1, 2009 Not Detected (NotDetected); Influenza AH1, PCR Not Detected (NotDetected); Influenza AH3,PCR Not Detected (NotDetected); Influenza B, PCR Not Detected (NotDetected); Parainfluenza 1, PCR Not Detected (NotDetected); Parainfluenza 2, PCR Not Detected (NotDetected); Parainfluenza 3, PCR Not Detected (NotDetected); Parainfluenza 4, PCR Not Detected (NotDetected); Respiratory Syncytial Virus Not Detected (NotDetected); Rhinovirus/Enterovirus Not Detected (NotDetected)
[2023-03-29 17:17] LABS: Coronavirus 19, PCR Detected (NotDetected)
== END 2023-03-29 12:42 | disposition home or self-care (01) ==
PROVIDERS: Emergency Provider Nurse Practitioner; PCP Family Medicine
DX: U07.1 COVID-19 (principal); R51.9 Headache, unspecified; R50.9 Fever, unspecified; R07.0 Pain in throat; R05.9 Cough, unspecified; R09.81 Nasal congestion; M79.18 Myalgia, other site; R53.1 Weakness
CPT/HCPCS: 87632; 87635; 87804; 87880; 99212; 99213; G0463

== ENCOUNTER 2023-04-14 09:45 | Outpatient (CLI) | payer OTHER, SELFPAY ==
--- NOTE | 2023-04-14 09:54 | US_ITS ---
FINAL REPORT CLINICAL HISTORY: CHEST WALL MASS COMPARISON: None FINDINGS: Sonographic images were obtained of the soft tissues of the chest wall. No mass or fluid collection were noted in the area of palpable abnormality. IMPRESSION: No mass or fluid collection. Reviewed, Interpreted and Dictated by José Barrera III, MD Transcribed by Herlinda Lopes Authenticated and [facility]
--- NOTE | 2023-04-14 09:54 | US_ITS ---
FINAL REPORT CLINICAL HISTORY: ABDOMINAL WALL MASS COMPARISON: None FINDINGS: Sonographic images were obtained of the soft tissues of the abdominal wall. There are multiple masses in the subcutaneous tissues in the area of interest, largest measures 2.8 cm. This is nonspecific but may represent multiple lipomas. IMPRESSION: Multiple masses subcutaneous tissues of the abdominal wall may represent multiple lipomas. Reviewed, Interpreted and Dictated by José Barrera III, MD Transcribed by Herlinda Lopes Authenticated and [facility]
== END 2023-04-14 23:59 ==
LOC: RAD 09:45
PROVIDERS: PCP Family Medicine; Visit Provider Physician Assistant
DX: R22.2 Localized swelling, mass and lump, trunk (principal)
CPT/HCPCS: 76604; 76705

== ENCOUNTER 2025-02-01 12:14 | Day surgery (SDC) | payer OTHER, SELFPAY ==
[2025-01-30 10:04] VITALS: BMI 34.2
--- NOTE | 2025-01-31 16:39 | EXP.HP ---
History of Present Illness *Admission Date: 02/01/25 *History of present illness: Mr. Acharya is a 34-year-old gentleman who is here for diagnostic EGD. He has developed dysphagia with food hanging up. He did have an upper endoscopy with me in July 2018 and had corrugation, furrowing and linear striations within the esophagus and biopsies of the distal and proximal esophagus were confirmatory for eosinophilic esophagitis. The esophagus was dilated to 20 mm at that time. RAST food allergy testing was sent and he did have class I and II food allergies to corn, clam, peanut, scallops, sesame seed, soybean, walnut and wheat. He has tried to cut out wheat but he finds the diet very difficult. The patient does state that around 2021 or 2022 he had recurrent dysphagia. Initially he was placed on omeprazole but now only uses this as needed. He gets just occasional heartburn. He does not take PPI daily but does use PPI therapy. He does report perennial allergies that are very bothersome in the spring and fall. The patient reports no belching but does get some epigastric bloating postprandially with tightness. The patient did have a barium swallow and upper GI series in January 2018 and this did show a small sliding hiatal hernia with 9 constricting Schatzki's ring. The examination is deemed medically necessary for diagnostic EGD. The patient has been seen, interviewed and examined prior to the procedure by both myself and the anesthesia provider. [facility] Disclaimer: The information contained in this section may have been updated after the patient was seen, as this information can be updated by other users. Medical History Attention deficit disorder (ADD) in adult Active follow-up at [facility]. MAX (obstructive sleep apnea) -uses CPAP Anxiety Surgical History History of hernia surgery Family History Other Cancer Coronary artery disease Diabetes Social History Smoking Status: Never smoker second hand exposure: No alcohol intake: never counseling given: No substance use type: denies use counseling given: No current occupational status: employed Travel in the last 8 weeks?: None adopted: No caregiver/support person: Yes foster care: No household members: spouse housing: house lives independently: Yes marital status: number of children: 2 number of grandchildren: 0 education level: college 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 Hx Recent Travel: No sexually active: Yes caffeine: No physical activity: none, running and weight training working smoke detector in home: Yes fire extinguisher in home: No carbon monox detector in home: Yes firearms in home: Yes firearms unloaded and locked: Yes do you feel safe at home: Yes victim of physical abuse: No victim of emotional abuse: No victim of sexual abuse: No would you like helpful sources: No Have you lived/traveled outside [place] in past 30 days?: No Contact w/someone who lives/traveled outside US past 30 days?: No Exposure to someone with infectious disease in past 14 days?: No Do you have a fever (greater than 100.4 F or 38 C)?: No Have you tested positive for COVID-19?: No Exposed to someone with COVID-19 in past 14 days?: No Do you have a sore throat?: No Do you have a cough?: No Do you have any weakness?: No Are you experiencing any nausea/vomitting?: No Do you have any diarrhea?: No Are you experiencing any unusual bleeding?: No Do you have any muscle aches/pain?: No Do you have any abdominal pain?: No Are you experiencing loss of taste or smell?: No Other Medical History Have you received the Flu Vaccine for this season: No Have you received the Pneumonia Vaccine: No Review of Systems Review of Systems Review of systems (narrative): Negative *Cardiovascular Comments: Negative *Gastrointestinal Comments: Negative *Genitourinary Comments: Negative *Musculoskeletal Comments: Negative *Neurologic Comments: Negative Meds Home Medications and Allergies Home Medications ?Medication ?Instructions ?Recorded ?Confirmed ?Type No Known Home Medications 12/06/24 02/01/25 History New Prescriptions to Start Prescriptions: Allergies Allergy/AdvReac Type Severity Reaction Status Date / Time No Known Allergies Allergy Verified 02/01/25 12:51 Exam Data for Last 24 hours I & O for Last 24 hours: Intake & Output 01/28/25 01/29/25 01/30/25 01/31/25 22:59 23:59 23:59 23:59 Weight 245 lb *Routine HEENT Exam Head: Present normocephalic Eye: Present EOMI and PERRL ENT: Present mucous membranes moist *Routine Neck Exam Neck: Present supple *Routine Respiratory Exam Respiratory: Present CTA bilaterally *Routine Cardiovascular Exam Cardiovascular: Present RRR *Routine Abdominal Exam Abdominal: Present soft and normoactive bowel sounds; Absent tenderness *Routine Rectal Exam Rectal:: deferred *Routine Genitalia Exam Genitalia:: deferred *Routine Extremities Exam Extremities: Absent cyanosis, clubbing or edema *Routine Skin Exam Skin: Present warm; Absent rash *Routine Neurological Exam Neurological: Present alert and oriented X3 Assessment and Plan *Assessment and plan (1) History of esophageal stricture: Status: Acute Category: Medical Code(s): Z87.19 - Personal history of other diseases of the digestive system (2) Eosinophilic esophagitis: Status: Acute Category: Medical Code(s): K20.0 - Eosinophilic esophagitis (3) Food allergy: Status: Acute Category: Medical Code(s): Z91.018 - Allergy to other foods (4) Dysphagia: Status: Acute Category: Medical Code(s): R13.10 - Dysphagia, unspecified Plan A/P: 1. History of esophageal stricture with recurrent dysphagia and history of eosinophilic esophagitis and food allergy is the preprocedural diagnosis. The patient will be anesthetized/sedated using MAC sedation. The patient has been seen and examined. Cardiac and lung assessment prior to the examination is stable. Proceed with planned diagnostic EGD.
--- NOTE | 2025-02-01 06:50 | HMH.PROCNOTE ---
[facility] Procedure Note Date: 02/01/25 Time: 13:28 Procedure Note:: Upper Endoscopy Procedure Report: Esophagogastroduodenoscopy with cold biopsies and TTS balloon dilation Endoscopost: Terry De Jesus II, MD Referring Physician: Baltazar Woodruff MD Date of Procedure: February 01, 2025 Equipment: Olympus GIF-1100 standard upper endoscope Sedation: MAC sedation Indications: Mr. Acharya is a 34-year-old gentleman who is here for diagnostic EGD. He has developed dysphagia with food hanging up. He did have an upper endoscopy with me in July 2018 and had corrugation, furrowing and linear striations within the esophagus and biopsies of the distal and proximal esophagus were confirmatory for eosinophilic esophagitis. The esophagus was dilated to 20 mm at that time. RAST food allergy testing was sent and he did have class I and II food allergies to corn, clam, peanut, scallops, sesame seed, soybean, walnut and wheat. He has tried to cut out wheat but he finds the diet very difficult. The patient does state that around 2021 or 2022 he had recurrent dysphagia. Initially he was placed on omeprazole but now only uses this as needed. He gets just occasional heartburn. He does not take PPI daily but does use PPI therapy. He does report perennial allergies that are very bothersome in the spring and fall. The patient reports no belching but does get some epigastric bloating postprandially with tightness. The patient did have a barium swallow and upper GI series in January 2018 and this did show a small sliding hiatal hernia with a constricting Schatzki's ring. The examination is deemed medically necessary for diagnostic EGD. Procedure: Prior to the procedure, a history and physical exam was performed, and patient's medications and allergies were reviewed. The risks, benefits and alternatives of the sedation and procedure were discussed with the patient. All questions were answered and informed consent was obtained. The patient was brought to the procedure room. Patient identification and proposed procedure were verified by the physician and the nurse. The patient was placed in a left lateral decubitus position and the scope was passed under direct vision. Throughout the procedure, the patient's blood pressure, pulse, and oxygen saturations were monitored continuously. The upper GI endoscopy was accomplished without difficulty. The patient tolerated the procedure well. Findings: The scope was passed directly into the upper esophagus and advanced to the third portion of the duodenum. The post bulbar duodenum, ampulla and duodenal bulb were normal with normal mucosa and conniventes. The scope was withdrawn through a normal duodenal bulb and pylorus into the stomach. There was mild linear antral gastropathy. The body and fundus of the stomach were normal. Upon retroflexion there was a small 2 cm hiatal hernia. The scope was then withdrawn into the esophagus. There was no evidence of reflux esophagitis or Nance's. There was a distal fibrotic ring. There was also corrugation and furrowing throughout the distal, mid and proximal esophagus. Separate biopsies were taken from the distal and proximal esophagus to rule out eosinophilic esophagitis. The entire esophagus was dilated to 60 Kinyarwanda/20 mm with a TTS hydrostatic balloon with shattering of the distal esophageal ring. The remainder of the esophageal mucosa was normal. Impression: 1. Corrugation and furrowing consistent with eosinophilic esophagitis with distal esophageal fibrotic ring dilated to 20 mm Plan: I will follow-up the biopsies for confirmation of eosinophilic esophagitis. If the biopsies are positive, I would recommend Dupixent therapy. The incidence and prevalence of eosinophilic esophagitis (EOE) has increased dramatically over time. Extensive reviews have shown delays of several years from the onset of symptoms until the diagnosis. This is a progressive disease that persists and very few patients achieved resolution without proper treatment. Over the years, scar tissue can develop with fibrostenotic features (rings and strictures) and are more prominent as patients age suggesting the disease can have a greater scar tissue component over the course of time when not treating the inflammatory component. This can have more long lasting ramifications and certainly may place persons a greater risk for aspiration as they get older. Delay in diagnosis, recognition and treatment are factors that may lend to chronic fibrostenosis of the esophagus. Dupixent now is the only FDA approved treatment and its impact will certainly be crucial in determining the natural history of this condition.
--- NOTE | 2025-02-01 12:44 | EXP.ANES.CKL ---
[facility] Disclaimer: The information contained in this section may have been updated after the patient was seen, as this information can be updated by other users. Medical History Attention deficit disorder (ADD) in adult Active follow-up at [facility] [place] MAX (obstructive sleep apnea) -uses CPAP Anxiety Surgical History History of hernia surgery Family History Other Cancer Coronary artery disease Diabetes Social History (Updated 01/30/25 @ 10:02 by Niki Baker RN) Smoking Status: Never smoker second hand exposure: No alcohol intake: never counseling given: No substance use type: denies use counseling given: No current occupational status: employed Travel in the last 8 weeks?: None adopted: No caregiver/support person: Yes foster care: No household members: spouse housing: house lives independently: Yes marital status: number of children: 2 number of grandchildren: 0 education level: college 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 Hx Recent Travel: No sexually active: Yes caffeine: No physical activity: none, running and weight training working smoke detector in home: Yes fire extinguisher in home: No carbon monox detector in home: Yes firearms in home: Yes firearms unloaded and locked: Yes do you feel safe at home: Yes victim of physical abuse: No victim of emotional abuse: No victim of sexual abuse: No would you like helpful sources: No Have you lived/traveled outside [place] in past 30 days?: No Contact w/someone who lives/traveled outside [place] past 30 days?: No Exposure to someone with infectious disease in past 14 days?: No Do you have a fever (greater than 100.4 F or 38 C)?: No Have you tested positive for COVID-19?: No Exposed to someone with COVID-19 in past 14 days?: No Do you have a sore throat?: No Do you have a cough?: No Do you have any weakness?: No Are you experiencing any nausea/vomitting?: No Do you have any diarrhea?: No Are you experiencing any unusual bleeding?: No Do you have any muscle aches/pain?: No Do you have any abdominal pain?: No Are you experiencing loss of taste or smell?: No [facility] Anesthesia Checklist Patient Identification Patient Identification: Arm Band and Verbal (Name & ) Structural Data Admitted From: Home Planned Operative Procedure/s: EGD Consent for Planned Operative Procedure(s) Verified: Yes Verified Documents: Surgical Consent NPO Status Verified Time NPO: 00:00 Additional verifications Anesthesia Reactions: No Airway Assessment Mallampati Score:: Class II C-Spine Mobility Assessed: Yes TMJ Mobility Assessed: Yes Dentition: Good Dentition Neurological Assessment Level of Consciousness: Awake, Alert and Appropriate Hx Seizures: No Numbness or tingling in extremities: No Anesthesia Plan Anesthesia Risk discussed: Yes Anesthesia Plan: Verified ASA Class: I Anesthesia Type: MAC
[2025-02-01 12:51] VITALS: BP 127/70; PULSE 65; RESP 18; TEMP 36.3; O2SAT 97
[2025-02-01] MEDS: LACTATED RINGERS 1000ML 1,000 ML 50 ML IV (12:58)
[2025-02-01 13:28] VITALS: BP 120/66; PULSE 81; RESP 18; TEMP 36.4; O2SAT 94
[2025-02-01 13:38] VITALS: BP 118/56; PULSE 73; RESP 18; O2SAT 94
[2025-02-01 13:48] VITALS: BP 129/72; PULSE 66; RESP 16; O2SAT 95
[2025-02-01 13:58] VITALS: BP 118/72; PULSE 55; RESP 16; O2SAT 98
== END 2025-02-01 14:08 | disposition home or self-care (01) ==
PROVIDERS: PCP Family Medicine; Visit Provider Internal Medicine Gastroenterology
PROC: 0DJ08ZZ Inspection of Upper Intestinal Tract, Via Natural or Artificial Opening Endoscopic (ICD-10-PCS; CPT 43239; principal; 2025-02-01 14:00)
DX: K20.0 Eosinophilic esophagitis (principal); K31.89 Other diseases of stomach and duodenum; K44.9 Diaphragmatic hernia without obstruction or gangrene; K22.2 Esophageal obstruction; Z87.19 Personal history of other diseases of the digestive system; Z91.018 Allergy to other foods; Z91.010 Allergy to peanuts; Z91.013 Allergy to seafood
CPT/HCPCS: 43239; 43249; C1726; J2003; J2704; J7120